=== PATIENT | female | born 1990 | race Caucasian/White ===

== ENCOUNTER 2018-05-10 05:01 | Emergency (ER) | payer MEDICAID ==
[2018-05-10 05:02] VITALS: BMI 26.2
[2018-05-10 05:16] VITALS: BP 165/83; PULSE 101; RESP 18; TEMP 98.7; O2SAT 98
--- NOTE | 2018-05-10 10:21 | CARD ---
APPROVED REPORT Date of service: 05/10/2018 EKG Measurement Heart [id number] AL [id number] <Conclusion> Normal sinus rhythm Possible Left atrial enlargement Left ventricular hypertrophy Nonspecific T wave abnormality Prolonged QT Abnormal ECG
== END 2018-05-10 05:44 | disposition left against medical advice (07) ==
LOC: ED 05:01
DX: Z02.89 Encounter for other administrative examinations (principal); R07.9 Chest pain, unspecified

== ENCOUNTER 2018-07-05 23:10 | Emergency (ER) | payer MEDICAID ==
[2018-07-05 23:23] VITALS: BMI 28.3
[2018-07-05 23:24] VITALS: RESP 18; TEMP 98.4; O2SAT 100
[2018-07-05] MEDS ORDERED: Albuterol-Ipratrop 3 mg / 0.5 (3 ml) UD IH STA (23:30)
--- NOTE | 2018-07-05 23:30 | ED PDOC ---
Arrival/HPI - General Chief Complaint: Shortness Of Breath Time Seen by Provider: 07/05/18 23:18 Historian: Patient - History of Present Illness Narrative History of Present Illness (Text): 07/05/18 23:30 28 year old female, whose past surgical history includes recent breast implants and liposuction of abdomen 14 days prior in [facility], who presents to the ED complaining of difficulty breath and cough for the past 2 days. Patient denies any fever, chills, abdominal pain, or any other complaints. Time/Duration: < week (2 days) Symptom Onset: Gradual Symptom Course: Unchanged Activities at Onset: Light Context: Home Past Medical History - Provider Review Nursing Documentation Reviewed: Yes - Infectious Disease Hx of Infectious Diseases: None - Tetanus Immunization Tetanus Immunization: Unknown - Past Medical History Past Medical History: No Previous - Cardiac Hx Cardiac Disorders: Yes Other/Comment: 1 episode of SVT 11/2014 - Pulmonary Hx Respiratory Disorders: No - Neurological Hx Neurological Disorder: No - HEENT Hx HEENT Disorder: No - Renal Hx Renal Disorder: No - Endocrine/Metabolic Hx Endocrine Disorders: No - Hematological/Oncological Hx Blood Disorders: No - Integumentary Hx Dermatological Disorder: No - Musculoskeletal/Rheumatological Hx Musculoskeletal Disorders: No - Gastrointestinal Hx Gastrointestinal Disorders: Yes Other/Comment: HEARTBURN, NAUSEA - Genitourinary/Gynecological Hx Genitourinary Disorders: Yes Hx Urinary Tract Infection: Yes - Psychiatric Hx Depression: No Hx Substance Use: No - Surgical History Hx Section: Yes Other/Comment: breast implant. lipo - Anesthesia Hx Anesthesia: Yes Hx Anesthesia Reactions: No Hx Malignant Hyperthermia: No - Suicidal Assessment Feels Threatened In Home Enviroment: No Family/Social History - Physician Review Nursing Documentation Reviewed: Yes Family/Social History: Unknown Family HX Smoking Status: Never Smoked Hx Alcohol Use: No Hx Substance Use: No Hx Substance Use Treatment: No Allergies/Home Meds Allergies/Adverse Reactions: Allergies No Known Allergies Allergy (Verified 04/29/16 20:46) Review of Systems - Physician Review All systems were reviewed & negative as marked: Yes - Review of Systems Constitutional: absent: Fatigue, Fevers Eyes: absent: Vision Changes Respiratory: SOB, Cough Cardiovascular: absent: Chest Pain Gastrointestinal: absent: Abdominal Pain, Diarrhea, Nausea, Vomiting Musculoskeletal: absent: Arthralgias, Back Pain Skin: absent: Rash, Pruritis Neurological: absent: Headache, Dizziness Psychiatric: absent: Anxiety, Depression, Suicidal Ideation Physical Exam Vital Signs Reviewed: Yes Vital Signs Temp Pulse Resp BP Pulse Ox 07/05/18 23:23 98.4 F 76 18 127/83 100 Temperature: Afebrile Blood Pressure: Normal Pulse: Regular Respiratory Rate: Normal Appearance: Positive for: Well-Appearing, Non-Toxic, Comfortable Pain Distress: None Mental Status: Positive for: Alert and Oriented X 3 - Systems Exam Head: Present: Atraumatic, Normocephalic Pupils: Present: PERRL Extroacular Muscles: Present: EOMI Conjunctiva: Present: Normal Ears: Present: Normal, NORMAL TM, Normal Canal. No: Erythema, TM Bulging, Fluid, TM Perf Mouth: Present: Moist Mucous Membranes Pharnyx: Present: Normal. No: ERYTHEMA, EXUDATE, TONSILS ENLARGED, Peritonsilar Swelling, Uvular Deviation, Muffled/Hoarse Voice, Strider, Soft Palate/Uvular Edema Nose (External): Present: Atraumatic Nose (Internal): Present: Normal Inspection Neck: Present: Normal Range of Motion. No: Meningeal Signs, MIDLINE TENDERNESS, Paraspinal Tenderness Respiratory/Chest: Present: Clear to Auscultation, Good Air Exchange. No: Respiratory Distress, Accessory Muscle Use Cardiovascular: Present: Regular Rate and Rhythm, Normal S1, S2. No: Murmurs Abdomen: Present: Normal Bowel Sounds. No: Tenderness, Distention, Peritoneal Signs, Rebound, Guarding, McBurney's Point Tender, Rovsing's Sign Present, Scars Back: Present: Normal Inspection. No: CVA Tenderness, Midline Tenderness, Paraspinal Tenderness Upper Extremity: Present: Normal Inspection. No: Cyanosis, Edema Lower Extremity: Present: Normal Inspection. No: Edema Neurological: Present: GCS=15, CN II-XII Intact, Speech Normal, Motor Func Grossly Intact, Normal Cerebellar Funct, Gait Normal, Memory Normal Skin: Present: Warm, Dry, Normal Color. No: Rashes, Erythematous, Laceration, Abscess, Abrasion Psychiatric: Present: Alert, Oriented x 3, Normal Insight, Normal Concentration Medical Decision Making ED Course and Treatment: 07/05/18 23:30 Impression: 28 year old female complaining of difficulty breathing and cough for the past 2 days. Differential Diagnosis included but are not limited to: PE vs. pneumonia vs. cardiac arrhythmia Plan: -- EKG -- Chest X-ray -- CBC, CMP -- Troponin, D-dimer -- Duoneb -- Reassess and disposition Prior Visits: Notes and results from previous visits were reviewed. Progress Notes: 07/06/18 01:49 -Urine hcg is negative -EKG: NSR @ 79 BPM with sinus arrythmia, no ST elevation or depression, T wave inversion V2/3 -Chest xray ER wet read: no active disease -Labs are nonsignificant -Trop after 24 hours is negative -HEART score is low -Trop is negative -Dimer is negative -Pt. is asymptomatic after the duoneb. -Lung is clear to auscultate, labs and radiology result discusses, she request to be discharged home . -Discharge home with bromfed dm, albuterol, bed rest, follow up with your own pmd and pewter fabricator/pulmologist within 2 days, return to the ER for any new or worsening signs or symptoms. - RAD Interpretation Radiology Orders: 07/05/18 23:29 CHEST PORTABLE [RAD] Stat Clinical history: Shortness of breath. Comparison: 12/03/2014. Findings: The mediastinum and cardiac silhouette are within normal limits. The lungs are clear. No pleural effusion or pneumothorax is seen. The osseous structures and soft tissues are unremarkable. Impression: No acute disease. Electronically signed on July 06, 2018 1:28:00 AM EDT by: Cordelia Le M.D., Certified by ABR, MSK, Neuroradiology Cable Tool Driller: Radiologist - PA / PRINT FINISHING WORKER / Resident Statement MD/DO has reviewed & agrees with the documentation as recorded. - Scribe Statement The provider has reviewed the documentation as recorded by the Sangeetha Gomez Provider Scribe Attestation: All medical record entries made by the Onuribdeborah were at my direction and personally dictated by me. I have reviewed the chart and agree that the record accurately reflects my personal performance of the history, physical exam, [facility] decision making, and the department course for this patient. I have also personally directed, reviewed, and agree with the discharge instructions and disposition. Disposition/Present on Arrival - Present on Arrival Any Indicators Present on Arrival: No History of DVT/PE: No History of Uncontrolled Diabetes: No Urinary Catheter: No History of Decub. Ulcer: No History Surgical Site Infection Following: None - Disposition Have Diagnosis and Disposition been Completed?: Yes Diagnosis: Cough, SOB (shortness of breath) Disposition: HOME/ ROUTINE Disposition Time: 00:27 Patient Plan: Discharge Condition: IMPROVED Additional Instructions: -Discharge home with bromfed dm, albuterol, bed rest, follow up with your own pmd and pewter fabricator/pulmologist within 2 days, return to the ER for any new or worsening signs or symptoms. Prescriptions: Albuterol HFA [Ventolin HFA 90 mcg/actuation (8 g)] 2 puff IH [id number] PRN #1 inhaler PRN Reason: Cough Brompheniramine/Pseudoephed/Dm [Bromfed Dm Cough 118 ml] 10 ml PO QID PRN #300 ml PRN Reason: Other Referrals: Kyle Healy MD [Staff Provider] - Follow up with primary Seven Huggins MD [Staff Provider] - Follow up with primary [facility] [place] - Follow up with primary Forms: [employer] ([employer]wana), WORK NOTE
[2018-07-05 23:57] LABS: BASO # 0.02 K/mm3 (0.0-2.0); BASO % 0.3 % (0.0-3.0); EOS # 0.1 (0.0-0.7); EOS % 1.9 % (1.5-5.0); HEMOGLOBIN 12.1 g/dL (12.0-16.0); LYMPH # 2.7 (1.2-3.4); LYMPH % 41.5 % (22.0-35.0); MEAN CELL VOLUME 81.5 fl (80.0-105.0); MEAN CORPUSCULAR HEMOGLOBIN 26.7 pg (25.0-35.0); MEAN CORPUSCULAR HGB CONC 32.7 g/dl (31.0-37.0); MEAN PLATELET VOLUME 8.7 fl (7.0-11.0); MONO # 0.4 (0.1-0.6); MONO % 6.3 % (1.0-6.0); RBC 4.54 10^6/uL (3.5-6.1); RED CELL DISTRIBUTION WIDTH 14.1 % (11.5-14.5); WHITE BLOOD COUNT 6.4 10^3/uL (4.5-11.0)
[2018-07-06 00:08] LABS: ALB/GLOB RATIO 1.4 (1.1-1.8)
[2018-07-06 00:15] LABS: ALBUMIN 4.5 g/dL (3.0-4.8); ALT/SGPT 22 U/L (7-56); AST/SGOT 29 U/L (14-36); BLOOD UREA NITROGEN 16 mg/dL (7-21); CALCIUM 9.6 mg/dL (8.4-10.5); GFR NON-AFRICAN AMERICAN > 60
[2018-07-06 00:20] LABS: TROPONIN I < 0.01 ng/mL
[2018-07-06 02:04] VITALS: BP 125/73; PULSE 70
--- NOTE | 2018-07-06 09:18 | CARD ---
APPROVED REPORT Date of service: 07/05/2018 EKG Measurement Heart [id number] <Conclusion> Normal sinus rhythm with sinus arrhythmia Poor R wave progression Abnormal ECG
--- NOTE | 2018-07-06 10:24 | RAD ---
Date of service: 07/05/2018 HISTORY: shortness of breath COMPARISON: 12/03/2014 TECHNIQUE: 1 view obtained. FINDINGS: LUNGS: No active pulmonary disease. PLEURA: No significant pleural effusion identified, no pneumothorax apparent. CARDIOVASCULAR: No aortic atherosclerotic calcification present. Normal cardiac size. No pulmonary vascular congestion. OSSEOUS STRUCTURES: No significant abnormalities. VISUALIZED UPPER ABDOMEN: Normal. OTHER FINDINGS: The report concurs with the preliminary [facility] report IMPRESSION: No active disease.
== END 2018-07-06 01:57 | disposition home or self-care (01) ==
LOC: ED 23:10
DX: R06.02 Shortness of breath (principal); R05 Cough; I47.1 Supraventricular tachycardia